=== PATIENT | male | born 2005 | race Caucasian/White ===

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

== ENCOUNTER → 2024-01-07 | Outpatient (REF) ==
[~2024-01-07] MED LIST changes: +ALBU2.5V10 INH; +FLUT15.820; +MIDOTAB PO; +TRETPOW TOP; +TUMS500C PO
== END ==
LOC: M EMP 11:45
PROVIDERS: ATTEND Family Medicine
DX: Z11.52 Encounter for screening for COVID-19 (principal)

== ENCOUNTER → 2024-01-23 | Outpatient (REF) | payer OTHER, MEDICAID ==
[2024-01-23 17:29] LABS: ALKALINE PHOSPHATASE 45 U/L (40-129); ALT/SGPT 25 U/L (7.0-40); AST/SGOT 16 U/L (<34); BILIRUBIN,TOTAL 0.3 MG/DL (0.3-1.2); BLOOD UREA NITROGEN 11 MG/DL (9-23); CALCIUM LEVEL 9.4 MG/DL (8.5-10.1); CARBON DIOXIDE LEVEL 27 MMOL/L (20-31); CHLORIDE LEVEL 109 MMOL/L (98-107); CREATININE FOR GFR 0.75 MG/DL (0.70-1.30); GLUCOSE, FASTING 103 MG/DL (60-100); POTASSIUM SERUM 4.2 MMOL/L (3.5-5.1); SODIUM LEVEL 142 MMOL/L (136-145); TOTAL PROTEIN 6.6 G/DL (5.7-8.2)
[2024-01-23 17:33] LABS: THYROID STIMULATING HORMONE 2.617 uIU/ML (0.48-4.17)
[2024-01-23 17:34] LABS: TOTAL 25(OH) VITAMIN D 8.4 NG/ML (20.0-100.0)
== END ==
LOC: M LAB REF 16:24
PROVIDERS: ATTEND Physician Assistant
DX: R61 Generalized hyperhidrosis (principal); E55.9 Vitamin D deficiency, unspecified

== ENCOUNTER → 2024-04-08 | Outpatient (REF) | LOC: M EMP 08:23 | PROVIDERS: ATTEND Family Medicine | DX: Z11.52 Encounter for screening for COVID-19 (principal) ==

== ENCOUNTER 2024-08-31 21:11 | Emergency (ER) | payer BC, OTHER ==
[~2024-08-31] VITALS: Ht 175.3 cm; Wt 56.9 kg
[~2024-08-31 21:11] MED LIST changes: +CEPH500C PO
[2024-08-31 21:14] VITALS: BP 126/79; TEMP 98.8; O2SAT 100
[2024-08-31] MEDS: LIDOCAINE W/EPINEPHrine 1% 20 ML VIAL SC ONE (22:35)
[2024-08-31] MEDS ORDERED: BACT800T5 PO (22:56)
[2024-08-31] MEDS: BACTRIM 160MG/800MG DS TAB PO ONE (22:59)
== END 2024-08-31 23:15 | disposition home or self-care (01) ==
LOC: M ED 21:11
DX: L02.214 Cutaneous abscess of groin (principal); Z79.1 Long term (current) use of non-steroidal anti-inflammatories (NSAID); Z79.51 Long term (current) use of inhaled steroids; Z79.899 Other long term (current) drug therapy